=== PATIENT | male | born 1990 | race Caucasian/White ===

== ENCOUNTER 2025-09-25 20:54 | Emergency (ER) | payer SELFPAY ==
[2025-09-25 20:55] VITALS: BP 158/98; PULSE 58; RESP 16; TEMP 37; O2SAT 99; BMI 34.9
--- NOTE | 2025-09-25 21:35 | RAD_ITS ---
PROCEDURE: KNEE 4 OR MORE VIEWS 09/25/2025 REASON FOR EXAM: INJURY TECHNIQUE: Procedure Code: RADKN Modality: DX Procedure: KNEE 4 OR MORE VIEWS Laterality: Left FINDINGS: No acute fracture or dislocation. No significant bone or joint abnormality. Soft tissue thickening over the anterior aspect of the knee likely represents swelling, and possibly a hematoma or prepatellar bursitis. RAD/Knee 4 or More Views IMPRESSION: As above. Reading Location: [id number]
[2025-09-25 22:48] VITALS: BP 134/84; PULSE 62; RESP 16; TEMP 37; O2SAT 98
--- NOTE | 2025-09-25 22:55 | ED.VIS.LOWEX ---
HPI History of Present Illness Chief Complaint: Lower Extremity Injury Informant: patient and spouse/S.O. Narrative Narrative: 35-year-old male presenting to the emergency room with left knee injury. Patient states that earlier today he fell while doing some hussain. Came down on on an extended left leg/knee. States the day went on his knee got progressively more swollen and now has limited range of motion. Has been able to bear weight but is using crutches. He denies any other injury. He states there is an abrasion over the knee which he put some antibiotic ointment on. PFSH PFSH Medical History no medical history Home Medications ?Medication ?Instructions ?Recorded ?Last Taken ?Type NK 09/25/25 Unknown History Allergy/AdvReac Type Severity Reaction Status Date / Time No Known Allergies Allergy Verified 09/25/25 20:56 Family History no significant family his Surgical History no surgical history Social History Smoking Status: Never smoker ROS ROS ED Constitutional Constitutional ED: Denies chills, fever(s) or weight loss Eyes Eyes: Denies change in vision or diplopia ENT ENT ED: Denies ear pain, rhinorrhea or sore throat Cardiovascular Cardiovascular: Denies chest pain, orthopnea, palpitations or racing heartbeat Respiratory/Chest Respiratory/Chest: Denies cough, dyspnea or orthopnea Gastrointestinal Gastrointestinal: Denies abdominal pain, diarrhea, nausea or vomiting Genitourinary Genitourinary ED: Denies dysuria, hematuria or urinary frequency Musculoskeletal Musculoskeletal: Reports other Details: See HPI ; Denies arthralgias, back pain, myalgias or neck pain Integumentary Reports Abrasions; Denies abscess or rash Neurologic Neurologic: Denies headache(s) or weakness Psychiatric Psychiatric: Denies anxiety, depression, suicidal ideation or suicidal thoughts Endocrine Endocrinology: Denies polydipsia, polyphagia or polyuria Allergic/Immunologic Allergic/Immunologic ED: Denies mouth swelling, tongue swelling or urticaria EXAM Physical Exam Const Vital Signs: 09/25/25 20:55 09/25/25 22:48 Temperature 98.6 F 98.6 F Temperature Source Oral Pulse Rate 58 L 62 Respiratory Rate 16 16 Blood Pressure 158/98 H 134/84 H Blood Pressure Mean 118 100 Pulse Ox 99 98 Oxygen Delivery Method Room Air Positive well nourished and well developed General Appearance ED: well developed HEENT Reports normocephalic, head/scalp atraumatic and moist mucous membranes Eyes PERRL and EOMs intact bilaterally Neck no lymphadenopathy, supple and no JVD Resp normal respiratory effort and clear to auscultation bilaterally Cardio regular rate, regular rhythm and no murmurs GI normal to inspection, nondistended, normoactive bowel sounds and non-tender Palpation: soft Back/Spine no CVA tenderness and normal ROM Extremity Extremity Narrative: There is a large well-defined hematoma over the anterior aspect of the left knee. There is no effusion palpable. No tenderness posteriorly. There is superficial abrasion in the center of the hematoma. Hematoma seems to be confined to prepatellar bursa region. Ligaments appear stable. General Extremety ED: Negative for edema General Extremity: Negative for edema Neuro oriented x3 and CN's II-XII intact bilaterally Sensorium / Orientation: alert Motor Exam: strength 5/5 throughout Psych mental status grossly normal Mood & Affect: Negative for depressed or tearful Skin no rashes or lesions noted and no wounds MDM MDM MDM Narrative Medical decision making narrative: Differential diagnosis includes but not limited to fracture dislocation ligamentous injury tendon injury traumatic bursitis meniscal injury I depend interpretation of the plain films of the left knee is no acute fracture. I clinically suspect this is traumatic bursitis with associated hematoma/abrasion. Patient will use Ferdinand wrap ice for the next 48 hours. He was advised that there is a risk of the hematoma becoming infected. He is advised of return instructions as well as follow-up with orthopedics if needed. He is comfortable with this plan. History & Record Review Discussion w/independent historian: Patient and Significant other Radiography Diagnostic Testing: Clinical Impression(s) from Imaging Studies Knee X-Ray 09/25/25 21:35 IMPRESSION: As above. Reading Location: [id number] Discharge Plan Triage Chief Complaint: Lower Extremity Injury ED Provider: Harshad Mattson Dx/Rx/DC Orders Clinical Impression: Fall, Bursitis, traumatic, Hematoma of left knee region Instructions: ED Hematoma Prescriptions: No Action NK Primary Care Provider: Care Physician,No Primary Referrals: Damien Serrano MD [Med Staff - Active Staff, Orthopedics] Referral Note: as needed for orthopedics Care Physician,No Primary [Primary Care Provider, Medical] Print Language: Nicaraguan Disposition Disposition: Home, Self Care Discharge Date/Time: 09/25/25 22:52
== END 2025-09-25 22:52 | disposition home or self-care (01) ==
PROVIDERS: Emergency Provider Emergency Medicine; Visit Provider Emergency Medicine
DX: M70.52 Other bursitis of knee, left knee (principal); S80.02XA Contusion of left knee, initial encounter; W17.89XA Other fall from one level to another, initial encounter
CPT/HCPCS: 73564; 99282

== ENCOUNTER → 2025-10-08 | Outpatient (CLI) | payer SELFPAY ==
--- NOTE | 2025-10-08 09:59 | MRI_ITS ---
PROCEDURE: l 10/08/2025 REASON FOR EXAM: SPRAIN OF OTHER SPEC PARTS OF LEFT KNEE, INIT ENCOUNTR TECHNIQUE: Procedure Code: MRILEJ Modality: MR Procedure: LOWER EXT JOINT ONLY (ROUTINE) Multiplanar and multisequence images were obtained without IV contrast administration. COMPARISON: COMPARISON : None FINDINGS: A 7.8 x 4.5 cm oblong cystic lesion is seen along the anteromedial aspect of the knee just medial to the patella. It displays high T2 signal intensity with internal streaks of dark T2 signal, it is seen surrounded by soft tissue edema signal. The described imaging findings are suggestive of hematoma however, underlying infection cannot be totally excluded. Recommend clinical correlation. Intact medial meniscus. Intact lateral meniscus. Normal medial collateral ligament. Normal lateral collateral (fibular) ligament. Normal patellar retinaculae. Normal patellar ligament and quadriceps tendon. Normal anterior cruciate ligament (ACL). Normal posterior cruciate ligament (PCL). Normal Hoffa's fat pad. Normal distal semimembranosus, gracilis and semitendinosus tendons. Normal popliteus tendon. Intact biceps femoris tendon. Intact luna-articular musculature. Minimal knee joint effusion. Mild articular cartilage increased signal or softening seen involving the cartilage overlying the lateral tibial condyle suggesting chondromalacia. Normal articular cartilage of the rest of the articulating bones. Normal marrow signal of the examined bones, no marrow edema or infiltrations. Intact patello-femoral, femorotibial and tibiofibular articulations. MRI/Lower Ext Joint Only (Routine) IMPRESSION: A 7.8 x 4.5 cm oblong cystic lesion seen along the anteromedial aspect of the k nee just medial to the patella. It displays high T2 signal intensity with internal streaks of dark T2 signal, it is seen surroun ded by soft tissue edema signal. The described imaging findings are suggestive of hematoma however, underlying infection canno t be totally excluded. Recommend clinical correlation. Mild articular cartilage increased signal or softening seen involving the carti rochelle overlying the lateral tibial condyle suggesting chondromalacia. Minimal knee joint effusion. Reading [facility] [id number]
== END | disposition home or self-care (01) ==
PROVIDERS: Referring Provider Physician Assistant Surgical; Visit Provider Physician Assistant Surgical
DX: S83.8X2A Sprain of other specified parts of left knee, initial encounter (principal); S80.02XA Contusion of left knee, initial encounter; M70.42 Prepatellar bursitis, left knee
CPT/HCPCS: 73721